=== PATIENT | female | born 1930 | race Caucasian/White ===

== ENCOUNTER 2016-12-10 13:38 | Emergency (ER) | payer MEDICARE ==
[2016-12-10 13:51] VITALS: BMI 24.6
[2016-12-10 13:52] VITALS: TEMP 97.6
--- NOTE | 2016-12-10 14:51 | RAD ---
PROCEDURE: AP PELVIS AND OBLIQUE RIGHT HIP HISTORY: injury COMPARISON: No prior TECHNIQUE: AP view of the pelvis and oblique view of the right hip were obtained. FINDINGS: There is no evidence of acute fracture or dislocation. 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 IMPRESSION: No evidence of acute fracture or dislocation.
--- NOTE | 2016-12-10 14:52 | RAD ---
PROCEDURE: Right Ankle Radiographs. HISTORY: injury COMPARISON: None FINDINGS: BONES: Normal. No fracture. JOINTS: [id number] osteoarthritis. Ankle mortise maintained. Talar dome intact SOFT TISSUES: Normal. OTHER FINDINGS: None. IMPRESSION: No evidence of acute fracture or dislocation. [id number] osteoarthritis.
--- NOTE | 2016-12-10 15:01 | C.PDOC ---
History Of Present Illness 86 year old female presents to the ED accompanied by her son for evaluation of right wrist/ forearm, right hip, and right ankle pain after sustained mechanical falling just on arrival. Patient states she was entering the [facility] when she did not notice a glass door, hit the face with door and fell backwards landing on the right side of the body , trying break fall with right hand. Pt is ambulatory at ED without difficulty or discomfort. Pt and son, who witnessed the fall, denies LOC, syncope, headache, dizziness, visual changes, focal deficits, neck pain, chest pain, shortness of breath, N/V, denies obvious deformity, weakness, sensory or vascular deficits to B/L UEs and LEs. - HPI Time Seen by Provider: 12/10/16 14:10 Chief Complaint (Nursing): Finger,Hand,&Wrist History Per: Patient, Family (son) History/Exam Limitations: no limitations Onset/Duration Of Symptoms: Mins Injury Occurred (Timing): Today @ (on arrival to ED accompanying ) Recent travel outside of the [place]: No - Fall Fall:Prior To Injury: Other (bumped ) Past Medical History Reviewed: Historical Data, Nursing Documentation, Vital Signs Vital Signs: Last Vital Signs Temp 97.6 F 12/10/16 13:52 Pulse 70 12/10/16 15:25 Resp 16 12/10/16 15:25 BP 145/89 12/10/16 15:25 Pulse Ox 97 12/10/16 16:08 Surgical History: Appendectomy Family History: States: Unknown Family Hx - Social History Hx Alcohol Use: No Hx Substance Use: No - Immunization History Hx Tetanus Toxoid Vaccination: No Hx Influenza Vaccination: No Hx Pneumococcal Vaccination: No Review Of Systems Constitutional: Negative for: Fever, Chills Eyes: Negative for: Vision Change Cardiovascular: Negative for: Chest Pain Respiratory: Negative for: Cough, Shortness of Breath Musculoskeletal: Positive for: Arm Pain (right forearm and right wrist pain ), Leg Pain (right ankle and right hip pain ), Other (denies any deformities ). Negative for: Neck Pain Neurological: Negative for: Headache, Dizziness Physical Exam - Physical Exam Appears: Well, Non-toxic, No Acute Distress Skin: Warm, Dry, No Ecchymosis Head: Atraumatic, Normacephalic Eye(s): bilateral: PERRL Nose: No Deformity, No Tenderness Oral Mucosa: Moist Neck: No Midline Cervical Tenderness, No Paracervical Tenderness, No Step Off Deformity, Supple Chest: Symmetrical, No Deformity Cardiovascular: Rhythm Regular Respiratory: No Rales, No Rhonchi, No Stridor, No Wheezing Gastrointestinal/Abdominal: Soft, No Tenderness Back: No Vertebral Tenderness, No Paraspinal Tenderness Extremity: Normal ROM (of B/L UEs and LEs), Tenderness (Tenderness to the dorsal aspect of the right wrist. Tenderness to right lateral ankle.), No Calf Tenderness, Capillary Refill (good capillary refill, less than 2 seconds ), No Deformity, Other (no sensory or vascular deficits ) Neurological/Psych: Oriented x3, Normal Speech, Normal Cognition, Normal Cranial Nerves, Normal Motor, Normal Sensation, Normal Reflexes Gait: Steady ED Course And Treatment O2 Sat by Pulse Oximetry: 97 (room air ) Pulse Ox Interpretation: Normal - Other Rad Right Ankle Radiographs X-Ray: Viewed By Me, Read By Radiologist Interpretation: IMPRESSION: No evidence of acute fracture or dislocation. Mild -to-moderate osteoarthritis. Radiographs of the Right Forearm X-Ray: Viewed By Me, Read By Radiologist Interpretation: Acute fracture at the distal right radius extending to the articular surface. Right Wrist Radiographs. X-Ray: Interpreted by Me, Viewed By Me Interpretation: wrist positive distal radial fracture AP PELVIS AND OBLIQUE RIGHT HIP X-Ray: Viewed By Me, Read By Radiologist Interpretation: IMPRESSION: No evidence of acute fracture or dislocation. Progress Note: On re-evaluation, pt is afebrile, hemodynamicaly stable. Non- toxic. Ambulatory in ED with stable gait. Head: AT/NC. Neck: (-) midline tenderness, no palpable step-offs. ABd: benign. Right wrist: exam c/w contusion, no deformity, no neurovascular deficits, no skin changes. Right ankle: mild tenderness over lateral malleolus. No deformity, no neurovascular deficits. xrays review, (+) Right distal radius fx, non-displaces. Splint applied. Pt and family memebr discussed results. Pt advised and ref. to F/u with PMD and Ortho in 1-2 days for re-eval. return if any new changes. Orthopedic Time Performed: 14:50 Time Out: Side verified, Site verified, Patient ID confirmed Procedure: Splint Type: Volar Location: Right, Wrist Consent obtained: Verbal Performed by: Mid-level Provider Diagnosis: Fracture Type: Closed, Non-displaced Location: Right, Distal Bone: Radius Disposition Counseled Patient/Family Regarding: Studies Performed, Diagnosis, Need For Followup, Rx Given - Disposition Referrals: Lilliana Daniel MD [Staff Provider] - Ashley Finn MD [Staff Provider] - Disposition: HOME/ ROUTINE Disposition Time: 15:05 Condition: STABLE Additional Instructions: SPlint until re-evaluated by Orthopedist in 1-2 days Observe 48 hours for any sign of head injury-return to ED at any time if any headache, dizziness, lethargy, syncopy or any other new changes. Follow up with PMD in 2-3 days for re-evaluation. Instructions: Ankle Sprain (ED), Wrist Fracture in Adults (ED), Hip Contusion ( ED) Print Language: [place] - Clinical Impression Clinical Impression: Wrist fracture, right, Contusion, hip, Ankle sprain, Facial contusion, Fall - Scribe Statement The provider has reviewed the documentation as recorded by the Scribricky Willingham All medical record entries made by the Jhonnyibricky were at my direction and personally dictated by me. I have reviewed the chart and agree that the record accurately reflects my personal performance of the history, physical exam, medical decision making, and the department course for this patient. I have also personally directed, reviewed, and agree with the discharge instructions and disposition.
--- NOTE | 2016-12-10 15:06 | RAD ---
PROCEDURE: Radiographs of the Right Forearm HISTORY: injury COMPARISON: None available. TECHNIQUE: Frontal and lateral views obtained. FINDINGS: BONES: Acute articular fracture at the distal head of the right radius. JOINT SPACES: Narrowing of the joint is space suggestive of osteoarthritis. OTHER FINDINGS: None. IMPRESSION: Acute fracture at the distal right radius extending to the articular surface.
--- NOTE | 2016-12-10 15:06 | RAD ---
PROCEDURE: Right Wrist Radiographs. HISTORY: injury COMPARISON: None. FINDINGS: BONES: Acute non displaced fracture at the distal right radius extending to the articular surface. JOINTS: [id number]-[id number] osteoarthritis. SOFT TISSUES: Normal. OTHER FINDINGS: None. IMPRESSION: Acute nondisplaced fracture at the distal right 3rd toes extending to the articular surface
[2016-12-10 15:25] VITALS: BP 145/89; PULSE 70; RESP 16
[2016-12-10 15:28] VITALS: O2SAT 97
== END 2016-12-10 15:35 | disposition home or self-care (01) ==
LOC: C.ER 13:38
DX: S52.501A Unspecified fracture of the lower end of right radius, initial encounter for closed fracture (principal); S93.401A Sprain of unspecified ligament of right ankle, initial encounter; S70.01XA Contusion of right hip, initial encounter; S00.83XA Contusion of other part of head, initial encounter; W18.30XA Fall on same level, unspecified, initial encounter; Y92.239 Unspecified place in hospital as the place of occurrence of the external cause